=== PATIENT | female | born 1995 | race Caucasian/White ===

== ENCOUNTER 2022-08-15 11:33 | Emergency (ER) | payer SELFPAY | END 2022-08-15 14:35 | disposition short-term general hospital (02) | LOC: ER1 11:33 | DX: S01.511A Laceration without foreign body of lip, initial encounter (principal); W54.0XXA Bitten by dog, initial encounter; Y92.009 Unspecified place in unspecified non-institutional (private) residence as the place of occurrence of the external cause | CPT/HCPCS: 64400; 90471; 90715; 99284 ==